=== PATIENT | female | born 1945 | race Caucasian/White ===

== ENCOUNTER 2021-05-16 10:39 | Emergency (ER) | payer MEDICARE, OTHER ==
[~2021-05-16 10:39] MED LIST: ALEVE220 MG PO; ASPIRIN325 MG PO; HYDREA500 MG PO; LISINOPRIL-HCT1 EACH PO; NORCO 5-325 TA1 EACH PO; PRILOSEC20 MG PO; VITAMIN E400 UNI3 PO
[2021-05-16 12:01] LABS: BASOPHIL 0.8 % (0-2); EOSINOPHIL 0.5 % (0-7); HGB 12.7 g/dl (12.5-16.0); LYMPHOCYTE 14.8 % (15-48); MCH 41.5 pg (25.0-31.0); MCHC 34.3 g/dL (32.0-36.0); MCV 120.9 fL (78.0-100.0); MONOCYTE 4.1 % (0-12); MPV 9.5 fL (6.0-9.5); NEUTROPHIL 79.5 % (41-80); NRBC 0; PLT 561 K/uL (150-400); RBC 3.06 M/uL (4.20-5.40); RDW 13.7 % (11.5-14.0); WBC 3.7 K/uL (4.0-10.5)
[2021-05-16 12:18] LABS: INR 1.11 (0.9-1.2); PROTHROMBIN TIME 13.7 SECONDS (11.8-13.4); PTT 30.9 SECONDS (24.4-34.7)
[2021-05-16 12:39] LABS: BUN/CREAT RATIO (CALC) 19.8 RATIO; CREATININE 0.86 mg/dL (0.51-0.95); POTASSIUM 4.6 mmol/L (3.5-5.1)
[2021-05-16 12:50] LABS: PRO-BNP 258 pg/mL (<125)
== END 2021-05-16 14:19 | disposition home or self-care (01) ==
LOC: FER 10:39
PROVIDERS: Emergency Medicine
DX: I45.10 Unspecified right bundle-branch block (principal); I45.2 Bifascicular block; I10 Essential (primary) hypertension; Z85.3 Personal history of malignant neoplasm of breast; Z92.3 Personal history of irradiation; Z98.890 Other specified postprocedural states
CPT/HCPCS: 36415; 71045; 80048; 83880; 84484; 85025; 85610; 85730; 93005